=== PATIENT | female | born 1975 | race Two or more races ===

== ENCOUNTER 2018-07-28 11:40 | Day surgery (SDC) | payer OTHER ==
[~2018-07-28] VITALS: Ht 157.5 cm; Wt 63.1 kg
[2018-07-28 12:55] VITALS: Ht 157.5 cm; Wt 63.1 kg
[2018-07-28 13:02] VITALS: BP 114/65; PULSE 58; RESP 31
[2018-07-28] MEDS ORDERED: LIDOCAINE 4% SOLUTION 50 ML BTL ONE (13:04)
[2018-07-28] MEDS ORDERED: MIDAZOLAM 1 MG/ML 2 ML INJ ONE ×2 (13:32)
[2018-07-28] MEDS ORDERED: FENTAnyl 50 MCG/ML VIAL ONE (13:32)
== END 2018-07-28 15:16 | disposition home or self-care (01) ==
LOC: GIL 11:40
PROVIDERS: ATTEND Internal Medicine
DX: R12 Heartburn (principal); R10.10 Upper abdominal pain, unspecified
CPT/HCPCS: 43239; 84703; 88305; 88312; J2250; J3010; Z7610